=== PATIENT | female | born 1985 | race Caucasian/White ===

== ENCOUNTER 2016-12-05 07:55 | Outpatient (CLI) | payer OTHER ==
--- NOTE | 2016-12-05 12:14 | MRI Report ---
EXAM: LEFT ANKLE/HINDFOOT MRI WITHOUT CONTRAST EXAM DATE: 12/05/2016 08:38 AM. CLINICAL HISTORY: Displaced fracture of lateral malleolus of the fibula. COMPARISON: None. TECHNIQUE: Multiplanar, multisequence T1-weighted and fluid-sensitive sequences of the ankle/hindfoot without contrast. Other: None. FINDINGS: Bones: No fractures or subluxations. No marrow edema. No bone lesions. Articular Cartilage: Unremarkable. Ligaments: The anterior and posterior tibiofibular, anterior and posterior talofibular, and calcaneof ibular ligaments are intact. The deep and superficial deltoid and spring ligaments are intact. Anterior Tendons: The tibialis anterior, extensor hallucis longus, and extensor digitorum longus tend ons are unremarkable. Medial Tendons: The tibialis posterior, flexor digitorum longus, and flexor hallucis longus tendons a re unremarkable. Lateral Tendons: The peroneus brevis and longus are unremarkable. Achilles Tendon: The Achilles tendon is unremarkable. Musculature: No edema or fatty atrophy. Other: No effusions. The contents of the sinus tarsi and tarsal tunnel are unremarkable. No plantar f asciitis. The subcutaneous tissues are unremarkable. IMPRESSION: No MRI abnormalities in the ankle/hindfoot. [facility] SECTION Referring Provider Line: [phone] SITE ID: [id number]
== END 2016-12-05 07:56 | disposition home or self-care (01) ==
LOC: DI 07:55
PROVIDERS: ATTEND Internal Medicine
DX: S82.62XA Displaced fracture of lateral malleolus of left fibula, initial encounter for closed fracture (principal)

== ENCOUNTER 2017-08-09 07:47 | Emergency (ER) | payer OTHER ==
[2017-08-09 08:14] VITALS: BP 122/83
--- NOTE | 2017-08-09 08:27 | ED Physician Documentation ---
PD HPI URI - Stated complaint Stated Complaint: SORE THROAT - Chief complaint Chief Complaint: Heent - History obtained from History obtained from: Patient - History of Present Illness Timing - onset: How many days ago (2-3) Timing duration: Days Timing details: Gradual onset, Still present Associated symptoms: Chills, Ear pain (right), Nasal congestion, Sore throat, Dry cough. No: Fever, Productive cough, Hemoptysis, Chest pain Contributing factors: No: Travel, Immunocompromised, COPD / asthma Similar symptoms before: Has not had sx before Recently seen: Not recently seen Review of Systems Constitutional: reports: Chills, Myalgias. denies: Fever Ears: reports: Ear pain Nose: reports: Rhinorrhea / runny nose Throat: reports: Sore throat. denies: Swollen tonsils Cardiac: denies: Chest pain / pressure Respiratory: reports: Cough. 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: LEEP (Cervical surgery), Dilation and currettage - Present Medications Home Medications: Ambulatory Orders Medication Instructions Recorded Confirmed Benzonatate [Tessalon] 100 mg PO TID PRN #25 capsule 08/09/17 Citalopram [CeleXA] 0 mg DAILY 08/09/17 08/09/17 Dexamethasone [Decadron] 4 mg PO DAILY #5 tablet 08/09/17 Fluticasone [Flonase] 08/09/17 Prazosin [Minipress] 0 mg PO DAILY 08/09/17 08/09/17 guaiFENesin/CODEINE [Robitussin AC] 10 ml PO Q6H PRN #240 ml 08/09/17 - Allergies Allergies/Adverse Reactions: Allergies Allergy/AdvReac Type Severity Reaction Status Date / Time No Known Drug Allergies Allergy Verified 08/09/17 08:14 - Social History Does the pt smoke?: No Smoking Status: Never smoker Does the pt drink ETOH?: No Does the pt have substance abuse?: No - Immunizations Immunizations are current?: Yes - POLST Patient has POLST: No PD ED PE NORMAL - Vitals Vital signs reviewed: Yes - General General: Alert and oriented X 3, Well developed/nourished - HEENT HEENT: Ears normal, Pharynx benign - Neck Neck: Supple, no meningeal sign, Other (mild anterior adenopathy) - Cardiac Cardiac: RRR, No murmur - Respiratory Respiratory: Clear bilaterally - Abdomen Abdomen: Soft, Non tender - Derm Derm: Normal color, Warm and dry, No rash - Neuro Neuro: Alert and oriented X 3, No motor deficit, Normal speech Results - Vitals Vitals: Vital Signs - 24 hr 08/09/17 08:05 Temperature 37.1 C Heart Rate 76 Respiratory 16 Rate Blood Pressure 122/83 H O2 Saturation 100 Oxygen O2 Source Room air PD MEDICAL DECISION MAKING - ED course Complexity details: considered differential, d/w patient - Sepsis Event Vital Signs: Vital Signs - 24 hr 08/09/17 08:05 Temperature 37.1 C Heart Rate 76 Respiratory 16 Rate Blood Pressure 122/83 H O2 Saturation 100 Oxygen O2 Source Room air Departure - Departure Disposition: 01 Home, Self Care Clinical Impression: Sore throat Upper respiratory infection Qualifiers: URI type: unspecified URI Qualified Code(s): J06.9 - Acute upper respiratory infection, unspecified Condition: Stable Record reviewed to determine appropriate education?: Yes Instructions: ED Upper Resp Infec No Abx Tx Follow-Up: JOON LUCIA DO [Primary Care Provider] - Prescriptions: Benzonatate [Tessalon] 100 mg PO TID PRN #25 capsule PRN Reason: Cough Dexamethasone [Decadron] 4 mg PO DAILY #5 tablet guaiFENesin/CODEINE [Robitussin AC] 10 ml PO Q6H PRN #240 ml PRN Reason: Cough Comments: Drink lots of fluids. Continue Tylenol or ibuprofen if needed for pains. Decadron steroid anti-inflammatory daily for 5 more days. Tessalon if needed for cough. Add codeine cough medicine at night for sleep. Drink lots of fluids. Recheck if still not improving over the next several days. It does not sound bacterial and so I do not see benefit to antibiotics and you are not wheezing so no benefit from inhaler. Discharge Date/Time: 08/09/17 09:51
[2017-08-09] MEDS ORDERED: DEXAMETHASONE 10 MG/ML VIAL PO STA (08:42)
[2017-08-09] MEDS ORDERED: BENZONATATE 100 MG CAPSULE PO STA (08:42)
[2017-08-09] MEDS ORDERED: CHERRY SYRUP 10 ML UDC PO ONE (09:55)
== END 2017-08-09 09:51 | disposition home or self-care (01) ==
LOC: ED 07:47
DX: J02.9 Acute pharyngitis, unspecified (principal); J06.9 Acute upper respiratory infection, unspecified
CPT/HCPCS: 99283; A9270